=== PATIENT | female | born 1985 | race African-American/Black ===

== ENCOUNTER 2018-07-26 14:31 | Emergency (ER) | payer BC, SELFPAY ==
[2018-07-26] MEDS ORDERED: DIPHENHYDRAMINE 25 MG TAB/CAP ONE (15:10)
[2018-07-26] MEDS ORDERED: METOCLOPRAMIDE 10 MG/2mL INJ ONE (15:10)
[2018-07-26] MEDS ORDERED: KETOROLAC 30 MG/ML INJ ONE (15:10)
[2018-07-26] MEDS ORDERED: NA CHLORIDE 0.9% 1,000 ML ONE (15:10)
--- NOTE | 2018-07-26 16:25 | ER ---
Nurse's Notes [facility] Name: Pearl Mauricio Age: 32 yrs Sex: Female : 1985 Arrival Date: 07/26/2018 Time: 14:33 Bed 14 Private MD: None, None Diagnosis: Viral Cephalgia Presentation: 07/26 14:46 Presenting complaint: Patient states: Body aches, sore throat, diarrhea, headache, and hb fever x 2 days. Transition of care: patient was not received from another setting of care. Onset of symptoms was July 25, 2018. Risk Assessment: Do you want to hurt yourself or someone else? Patient reports no desire to harm self or others. Initial Sepsis Screen: Does the patient meet any 2 criteria? No. Patient's initial sepsis screen is negative. Does the patient have a suspected source of infection? No. Patient's initial sepsis screen is negative. Care prior to arrival: None. 14:46 Method Of Arrival: Ambulatory hb 14:46 Acuity: SYBIL 4 hb Triage Assessment: 14:58 General: Appears in no apparent distress. Behavior is calm, cooperative, appropriate hj for age. Pain: Complains of pain in throat. 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 - Social history:: Smoking status: Patient/guardian denies using tobacco. - Ebola Screening: : No symptoms or risks identified at this time. Screenin:57 Abuse screen: Denies threats or abuse. Denies injuries from another. Nutritional hj screening: No deficits noted. Tuberculosis screening: No symptoms or risk factors identified. Fall Risk None identified. Vital Signs: 14:47 BP 134 / 90; Pulse 91; Resp 16; Temp 99; Pulse Ox 100% on R/A; Weight 88 kg; Height 5 hb ft. 4 in. (162.56 cm); Pain 10/10; 16:34 BP 130 / 89; Pulse 85; Resp 18; Pulse Ox 100% on R/A; hj 14:47 Body Mass Index 33.30 (88.00 kg, 162.56 cm) hb ED Course: 14:33 Patient arrived in ED. sb2 14:33 None, None is Private Physician. sb2 14:47 Triage completed. hb 14:48 Arm band placed on right wrist. hb 14:49 Lambert Wiley, RN is Primary Nurse. hj 14:50 [facility] Murrieta [facility] jr8 14:50 Grady Lebron MD is Attending Physician. jr8 14:59 Patient has correct armband on for positive identification. Bed in low position. Call hj light in reach. Side rails up X 1. 15:16 Influenza Screen (a \T\ B) Sent. hj 15:16 Inserted saline lock: 22 gauge in left antecubital area, using aseptic technique. hj 16:34 No provider procedures requiring assistance completed. IV discontinued, intact, hj bleeding controlled, No redness/swelling at site. Pressure dressing applied. Administered Medications: 14:58 Drug: NS 0.9% 1000 ml Route: IV; Rate: 1000 ml; Site: left antecubital; hj 15:50 Follow up: IV Status: Completed infusion hj 14:58 Drug: Reglan 10 mg Route: IVP; Site: left antecubital; hj 15:50 Follow up: Response: No adverse reaction hj 14:58 Drug: TORadol 30 mg Route: IVP; Site: left antecubital; hj 15:50 Follow up: Response: No adverse reaction; Pain is decreased hj 14:58 Drug: Benadryl 25 mg Route: PO; hj 15:50 Follow up: Response: No adverse reaction hj Outcome: 16:25 Discharge ordered by . jr8 16:34 Discharged to home ambulatory. hj 16:34 Condition: stable 16:34 Discharge instructions given to patient, Instructed on discharge instructions, follow up and referral plans. Demonstrated understanding of instructions, follow-up care. 16:34 Patient left the ED. hj Signatures: Carlos Murrieta PA PA [facility] Lambert Wiley, RN RN Giulia Noguera RN RN Mary Bess sb2
--- NOTE | 2018-07-26 16:26 | EDPHYS ---
Physician Documentation [facility] Name: Pearl Mauricio Age: 32 yrs Sex: Female : 1985 Arrival Date: 07/26/2018 Time: 14:33 Bed 14 Private MD: None, None ED Physician Grady Lebron HPI: 07/26 16:26 This 32 yrs old Black Female presents to ER via Ambulatory with complaints of Flu jr8 Symptoms. 16:26 Onset: The symptoms/episode began/occurred acutely, yesterday. Associated signs and jr8 symptoms: Pertinent positives: diarrhea, fever, headache, body aches. Modifying factors: The patient symptoms are alleviated by nothing, the patient symptoms are aggravated by nothing. The patient has not experienced similar symptoms in the past. The patient has not recently seen a physician. 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 - Social history:: Smoking status: Patient/guardian denies using tobacco. - Ebola Screening: : No symptoms or risks identified at this time. ROS: 16:26 Eyes: Negative for injury, pain, redness, and discharge, ENT: Negative for injury, jr8 pain, and discharge, Neck: Negative for injury, pain, and swelling, Cardiovascular: Negative for chest pain, palpitations, and edema, Respiratory: Negative for shortness of breath, cough, wheezing, and pleuritic chest pain, Back: Negative for injury and pain, MS/Extremity: Negative for injury and deformity, Skin: Negative for injury, rash, and discoloration. 16:26 Constitutional: Positive for body aches, chills, fever, malaise. 16:26 Abdomen/GI: Positive for diarrhea, Negative for abdominal pain, nausea and vomiting. 16:26 Neuro: Positive for headache, Negative for altered mental status, dizziness, gait disturbance, hearing loss, loss of consciousness, numbness, seizure activity, speech changes, syncope, near syncope, tingling, tinnitus, tremor, visual changes, weakness. Exam: 16:26 Head/Face: Normocephalic, atraumatic. Eyes: Pupils equal round and reactive to light, jr8 extra-ocular motions intact. Lids and lashes normal. Conjunctiva and sclera are non-icteric and not injected. Cornea within normal limits. Periorbital areas with no swelling, redness, or edema. ENT: Nares patent. No nasal discharge, no septal abnormalities noted. Tympanic membranes are normal and external auditory canals are clear. Oropharynx with no redness, swelling, or masses, exudates, or evidence of obstruction, uvula midline. Mucous membranes moist. Neck: Trachea midline, no thyromegaly or masses palpated, and no cervical lymphadenopathy. Supple, full range of motion without nuchal rigidity, or vertebral point tenderness. No Meningismus. Cardiovascular: Regular rate and rhythm with a normal S1 and S2. No gallops, murmurs, or rubs. Normal PMI, no JVD. No pulse deficits. Respiratory: Lungs have equal breath sounds bilaterally, clear to auscultation and percussion. No rales, rhonchi or wheezes noted. No increased work of breathing, no retractions or nasal flaring. Abdomen/GI: Soft, non-tender, with normal bowel sounds. No distension or tympany. No guarding or rebound. No evidence of tenderness throughout. Back: No spinal tenderness. No costovertebral tenderness. Full range of motion. Skin: Warm, dry with normal turgor. Normal color with no rashes, no lesions, and no evidence of cellulitis. MS/ Extremity: Pulses equal, no cyanosis. Neurovascular intact. Full, normal range of motion. Neuro: Awake and alert, GCS 15, oriented to person, place, time, and situation. Cranial nerves II-XII grossly intact. Motor strength 5/5 in all extremities. Sensory grossly intact. Cerebellar exam normal. Normal gait. Vital Signs: 14:47 BP 134 / 90; Pulse 91; Resp 16; Temp 99; Pulse Ox 100% on R/A; Weight 88 kg; Height 5 hb ft. 4 in. (162.56 cm); Pain 10/10; 16:34 BP 130 / 89; Pulse 85; Resp 18; Pulse Ox 100% on R/A; hj 14:47 Body Mass Index 33.30 (88.00 kg, 162.56 cm) hb MDM: 14:50 Patient medically screened. [facility] 16:24 Data reviewed: vital signs, nurses notes, lab test result(s), and as a result, I will jr8 discharge patient. Data interpreted: Pulse oximetry: on room air is 100 %. Interpretation: normal. Counseling: I had a detailed discussion with the patient and/or guardian regarding: the historical points, exam findings, and any diagnostic results supporting the discharge/admit diagnosis, lab results, the need for outpatient follow up, a family practitioner, to return to the emergency department if symptoms worsen or persist or if there are any questions or concerns that arise at home. Response to treatment: the patient's symptoms have markedly improved after treatment, patient is well hydrated. 07/26 14:58 Order name: Influenza Screen (a \T\ B); Complete Time: 15:51 jr8 07/26 14:58 Order name: IV; Complete Time: 15:16 jr8 Administered Medications: : Drug: NS 0.9% 1000 ml Route: IV; Rate: 1000 ml; Site: left antecubital; hj 15:50 Follow up: IV Status: Completed infusion hj 14:58 Drug: Reglan 10 mg Route: IVP; Site: left antecubital; hj 15:50 Follow up: Response: No adverse reaction hj 14:58 Drug: TORadol 30 mg Route: IVP; Site: left antecubital; hj 15:50 Follow up: Response: No adverse reaction; Pain is decreased hj 14:58 Drug: Benadryl 25 mg Route: PO; hj 15:50 Follow up: Response: No adverse reaction hj Disposition: 07/27 10:07 Co-signature as Attending Physician, Grady Lebron MD I agree with the assessment and kdr plan of care. Disposition: 07/26/18 16:25 Discharged to Home. Impression: Viral Cephalgia . - Condition is Stable. - Discharge Instructions: Migraine Headache. - Medication Reconciliation Form, Thank You Letter, Antibiotic Education, Prescription Opioid Use form. - Follow up: Private Physician; When: 2 - 3 days; Reason: Recheck today's complaints, Continuance of care, Re-evaluation by your physician. - Problem is new. - Symptoms have improved. - Notes: Excedrine Migraine Push fluids Rest Signatures: Dispatcher [employer] EDMS Grady Lebron MD MD kdr Roszak, Josh, PA PA jr8 Lambert Wiley RN RN hj Baxter, Heather, RN RN Corrections: (The following items were deleted from the chart) 07/26 16:34 16:25 07/26/2018 16:25 Discharged to Home. Impression: Viral Cephalgia . Condition is hj Stable. Forms are Medication Reconciliation Form, Thank You Letter, Antibiotic Education, Prescription Opioid Use. Follow up: Private Physician; When: 2 - 3 days; Reason: Recheck today's complaints, Continuance of care, Re-evaluation by your physician. Problem is new. Symptoms have improved. jr8
== END 2018-07-26 16:34 | disposition home or self-care (01) ==
LOC: ER 14:31
DX: R51 Headache (principal)
CPT/HCPCS: 87804; 96361; 96374; 96375; 99283; J2765; J7030

== ENCOUNTER 2022-08-18 20:10 | Emergency (ER) | payer OTHER, SELFPAY ==
[2022-08-18] MEDS ORDERED: IBUPROFEN 200 MG TAB PO ONE (20:43)
[2022-08-18] MEDS ORDERED: IBUPROFEN 400 MG TAB ONE (20:43)
--- NOTE | 2022-08-18 21:02 | RAD REPORT ---
EXAM DESCRIPTION: RAD - Chest Pa And Lat (2 Views) - 08/18/2022 8:54 pm CLINICAL HISTORY: PAIN Chest pain. COMPARISON: No comparisons FINDINGS: The lungs are underinflated but grossly clear. The heart is normal in size. No displaced f ractures. IMPRESSION: No acute finding suspected.
--- NOTE | 2022-08-18 21:03 | RAD REPORT ---
EXAM DESCRIPTION: RAD - Hand Left 2 View - 08/18/2022 8:54 pm CLINICAL HISTORY: PAIN COMPARISON: No comparisons FINDINGS: Oblique fracture is seen involving the proximal phalanx of the fifth finger. No dislocatio n evident.
--- NOTE | 2022-08-18 21:55 | ER ---
Nurse's Notes [facility] Name: Pearl Mauricio Age: 36 yrs Sex: Female : 1985 Arrival Date: 08/18/2022 Time: 20:12 Bed 14 Private MD: Diagnosis: Nondisplaced fracture of proximal phalanx of left little finger;Fall on same level from slipping, tripping and stumbling without subsequent striking against object;Left rib pain Presentation: 08/18 20:37 Chief complaint: Patient states: "I was at [facility] and there was a wet spot on the floor as6 and I slipped in it and landed on the left side of my body". Coronavirus screen: At this time, the client does not indicate any symptoms associated with coronavirus-19. Ebola Screen: No symptoms or risks identified at this time. Initial Sepsis Screen: Does the patient meet any 2 criteria? No. Patient's initial sepsis screen is negative. Does the patient have a suspected source of infection? No. Patient's initial sepsis screen is negative. Risk Assessment: Do you want to hurt yourself or someone else? Patient reports no desire to harm self or others. Onset of symptoms was August 18, 2022. 20:37 Method Of Arrival: Ambulatory as6 20:37 Acuity: SYBIL 4 as6 Triage Assessment: 21:10 General: Appears uncomfortable, Behavior is calm, cooperative. Pain: Complains of pain as6 in left hand. 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 - Social history:: Smoking status: Patient denies any tobacco usage or history of. Screenin:10 Abuse screen: Denies threats or abuse. Denies injuries from another. Nutritional as6 screening: No deficits noted. Tuberculosis screening: No symptoms or risk factors identified. Fall Risk Fall in past 12 months (25 points). Total Torres Fall Scale indicates Low Risk Score (25-44 pts). Assessment: 21:20 General: Appears uncomfortable, Behavior is calm, cooperative. Pain: Complains of pain ha1 in left side body Pain does not radiate. Pain currently is 7 out of 10 on a pain scale. Neuro: Level of Consciousness is awake, alert, obeys commands, Oriented to person, place, time, situation. Cardiovascular: Capillary refill < 3 seconds Patient's skin is warm and dry. Respiratory: Airway is patent Trachea midline Respiratory effort is even, unlabored, Respiratory pattern is regular, symmetrical. GI: No signs and/or symptoms were reported involving the gastrointestinal system. : No signs and/or symptoms were reported regarding the genitourinary system. Derm: No signs and/or symptoms reported regarding the dermatologic system. Skin is normal. Musculoskeletal: Circulation, motion, and sensation intact. Range of motion: intact in all extremities, Reports pain on left pinky finger. 22:00 Reassessment: Patient and/or family updated on plan of care and expected duration. Pain ha1 level reassessed. Patient is alert, oriented x 3, equal unlabored respirations, skin warm/dry/pink. Splint put in place by tech. Vital Signs: 20:37 BP 136 / 103; Pulse 84; Resp 18 S; Temp 98.4(O); Pulse Ox 97% on R/A; Weight 81.65 kg as6 (R); Height 5 ft. 4 in. (162.56 cm) (R); Pain 10/10; 21:15 BP 134 / 95; Pulse 81; Resp 18 S; Pulse Ox 97% on R/A; ha1 22:15 BP 133 / 95; Pulse 80; Resp 16 S; Pulse Ox 97% on R/A; ha1 20:37 Body Mass Index 30.90 (81.65 kg, 162.56 cm) as6 ED Course: 20:12 Patient arrived in ED. bp1 20:23 David Carpenter DO is Attending Physician. ms3 20:39 Triage completed. as6 20:40 Arm band placed on. as6 20:55 Hand Left 2 View XRAY In Process Unspecified. EDMS 20:55 Chest Pa And Lat (2 Views) XRAY In Process Unspecified. EDMS 21:00 Patient has correct armband on for positive identification. Bed in low position. Call ha1 light in reach. Side rails up X 1. 21:34 Ines Hurt, RN is Primary Nurse. ha1 21:48 Foam/Aluminum splint applied to left little finger, secured with Manish wrap. ds4 21:53 Abhishek Mroales MD is Referral Physician. ms3 22:15 No provider procedures requiring assistance completed. ha1 22:15 Patient did not have IV access during this emergency room visit. ha1 Administered Medications: 20:43 Drug: Ibuprofen 600 mg Route: PO; as6 21:15 Follow up: Response: No adverse reaction ha1 Medication: 21:10 VIS not applicable for this client. as6 Outcome: 21:54 Discharge ordered by . ms3 22:25 Patient left the ED. ha1 22:25 Discharged to home ambulatory, with family. ha1 22:25 Condition: stable 22:25 Discharge instructions given to patient, family, Instructed on discharge instructions, follow up and referral plans. Demonstrated understanding of instructions, follow-up care. Signatures: Dispatcher [employer] EDMS Hilario Olmedo ds4 David Carpenter DO DO ms3 Arianna Sierra Ashby, RN RN as6 Ines Hurt, RICHA RN ha1 Corrections: (The following items were deleted from the chart) 22:42 22:42 Response: No adverse reaction ha1 ha1 22:42 21:20 Musculoskeletal: Circulation, motion, and sensation intact. Range of motion: ha1 intact in all extremities, ha1
--- NOTE | 2022-08-18 21:55 | EDPHYS ---
Physician Documentation [facility] Name: Pearl Mauricio Age: 36 yrs Sex: Female : 1985 Arrival Date: 08/18/2022 Time: 20:12 Bed 14 Private MD: ED Physician David Carpenter HPI: 08/18 20:34 This 36 yrs old Black Female presents to ER via Unassigned with complaints of Fall ms3 Injury. 20:34 Details of fall: The patient fell from an upright position, while walking. Onset: The ms3 symptoms/episode began/occurred 1 hour(s) ago. Associated injuries: The patient sustained injury to the chest, left hand, painful injury, swelling. Severity of symptoms: At their worst the symptoms were severe, in the emergency department the symptoms are unchanged. 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 - Social history:: Smoking status: Patient denies any tobacco usage or history of. ROS: 20:34 Constitutional: Negative for fever, and chills. Eyes: Negative for injury, pain, ms3 redness, and discharge, Neck: Negative for injury, pain, and swelling, Cardiovascular: Negative for chest pain, and palpitations. Respiratory: Negative for shortness of breath, cough, wheezing, and pleuritic chest pain, Abdomen/GI: Negative for abdominal pain, nausea, vomiting, diarrhea, and constipation. 20:34 MS/extremity: Positive for swelling, tenderness. 20:34 All other systems are negative. Exam: 20:34 Constitutional: This is a well developed, well nourished patient who is awake, alert, ms3 and in no acute distress. Head/Face: Normocephalic, atraumatic. Eyes: Pupils equal round and reactive to light, extra-ocular motions intact. Lids and lashes normal. Conjunctiva and sclera are non-icteric and not injected. Periorbital areas with no swelling, redness, or edema. Chest/axilla: Normal chest wall appearance and motion. Nontender with no deformity. Cardiovascular: Regular rate and rhythm with a normal S1 and S2. No gallops, murmurs, or rubs. Normal PMI, no JVD. No pulse deficits. Respiratory: Lungs have equal breath sounds bilaterally, clear to auscultation and percussion. No rales, rhonchi or wheezes noted. No increased work of breathing, no retractions or nasal flaring. Abdomen/GI: Soft, non-tender, with normal bowel sounds. No distension or tympany. No guarding or rebound. No evidence of tenderness throughout. 20:34 Musculoskeletal/extremity: Extremities: noted in the left small finger: pain, swelling, tenderness. Vital Signs: 20:37 BP 136 / 103; Pulse 84; Resp 18 S; Temp 98.4(O); Pulse Ox 97% on R/A; Weight 81.65 kg as6 (R); Height 5 ft. 4 in. (162.56 cm) (R); Pain 10/10; 21:15 BP 134 / 95; Pulse 81; Resp 18 S; Pulse Ox 97% on R/A; ha1 22:15 BP 133 / 95; Pulse 80; Resp 16 S; Pulse Ox 97% on R/A; ha1 20:37 Body Mass Index 30.90 (81.65 kg, 162.56 cm) as6 MDM: 20:33 Patient medically screened. ms3 20:34 Differential diagnosis: abrasion, contusion, fracture, sprain, strain. ms3 21:56 Data reviewed: vital signs, nurses notes, radiologic studies, and as a result, I will ms3 discharge patient. Counseling: I had a detailed discussion with the patient and/or guardian regarding: the historical points, exam findings, and any diagnostic results supporting the discharge/admit diagnosis, radiology results, the need for outpatient follow up, to return to the emergency department if symptoms worsen or persist or if there are any questions or concerns that arise at home. ED course: Discussed x-ray findings with patient. Patient given note for work. Patient to follow-up with Dr. Major in 2 to 3 days. Patient understands and agrees with plan. All questions were answered. Return precautions discussed include worsening symptoms, or any other concerns. On reevaluation patient with cap refill less than 2 seconds and sensation of the left little finger.. 08/18 20:33 Order name: Hand Left 2 View XRAY; Complete Time: 21:12 ms3 08/18 20:33 Order name: Chest Pa And Lat (2 Views) XRAY; Complete Time: 21:12 ms3 08/18 21:17 Order name: Splint - Finger; Complete Time: 21:48 ms3 Administered Medications: 20:43 Drug: Ibuprofen 600 mg Route: PO; as6 21:15 Follow up: Response: No adverse reaction ha1 Disposition Summary: 08/18/22 21:54 Discharge Ordered Location: Home ms3 Condition: Stable ms3 Diagnosis - Nondisplaced fracture of proximal phalanx of left little finger ms3 - Fall on same level from slipping, tripping and stumbling without subsequent ms3 striking against object - Left rib pain ms3 Followup: ms3 - With: Abhishek Morales MD - When: 2 - 3 days - Reason: Recheck today's complaints Discharge Instructions: - Discharge Summary Sheet ms3 - Finger Fracture, Adult ms3 Forms: - Medication Reconciliation Form ms3 - Thank You Letter ms3 - Work release form ms3 - Antibiotic Education ms3 - Prescription Opioid Use ms3 Prescriptions: - Ibuprofen 600 mg Oral Tablet - take 1 tablet by ORAL route every 6 hours As needed take with food; 30 tablet; ms3 Refills: 0, Product Selection Permitted Signatures: Dispatcher [employer] David June DO DO ms3 Gilbetr Nichols RN RN as6 Ines Hurt RN ha1
[2022-08-18 22:30] VITALS: BP 136/103; TEMP 98.4; O2SAT 97
== END 2022-08-18 22:25 | disposition home or self-care (01) ==
LOC: ER 20:10
PROC: 2W3KX1Z Immobilization of Left Finger using Splint (ICD-10-PCS; principal; 2022-08-18)
DX: S62.647A Nondisplaced fracture of proximal phalanx of left little finger, initial encounter for closed fracture (principal); R07.81 Pleurodynia; W01.0XXA Fall on same level from slipping, tripping and stumbling without subsequent striking against object, initial encounter
CPT/HCPCS: 71046; 99283